=== PATIENT | male | born 1975 | race Caucasian/White ===

== ENCOUNTER 2019-09-15 13:42 | Emergency (ER) | payer OTHER ==
[~2019-09-15] VITALS: Ht 175.3 cm; Wt 79.9 kg
[~2019-09-15 13:42] MED LIST: HYDR-3240 PO
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
[2019-09-15 15:00] LABS: BASOPHILS # (AUTO) 0.01 x10^3/uL (0-0.1); BASOPHILS % (AUTO) 0 % (0-1); EOSINOPHILS # (AUTO) 0.11 x10^3/uL (0-0.4); EOSINOPHILS % (AUTO) 1 % (1-7); LYMPHOCYTES % (AUTO) 23 % (22-44); MD NO; MEAN CORPUSCULAR HEMOGLOBIN 29.8 pg (27.5-34.5); MEAN CORPUSCULAR HGB CONC 33.9 g/dL (33.2-36.2); MEAN CORPUSCULAR VOLUME 87.7 fL (81-97); MEAN PLATELET VOLUME 7.4 fL (7.4-10.4); MONOCYTES # (AUTO) 0.69 x10^3/uL (0.2-0.8); MONOCYTES % (AUTO) 9 % (2-9); NEUTROPHILS # (AUTO) 5.33 x10^3/uL (1.8-6.8); NEUTROPHILS % (AUTO) 67 % (42-75); PLATELET COUNT 249 x10^3/uL (130-400); RED BLOOD COUNT 5.24 x10^6/uL (4.38-5.82); RED CELL DISTRIBUTION WIDTH 13.5 % (9.4-14.8)
[2019-09-15 15:12] LABS: ALANINE AMINOTRANSFERASE 36 U/L (12-78); ALBUMIN 4.2 g/dL (3.4-5.0); ANION GAP 7 mmol/L (5-15); CALCIUM 9.2 mg/dL (8.5-10.1); CHLORIDE 107 mmol/L (98-107); CREATININE 0.94 mg/dL (0.7-1.3)
[2019-09-15 15:15] LABS: ALKALINE PHOSPHATASE 78 U/L (45-117); BILIRUBIN,TOTAL 1.5 mg/dL (0.2-1.0); TOTAL PROTEIN 7.8 g/dL (6.4-8.2)
--- NOTE | 2019-09-15 15:21 | NUR ---
PT RESTING IN BED, CALL LIGHT IN REACH.
[2019-09-15 15:31] LABS: INTERNATIONAL NORMALIZED RATIO 1.01 (0.93-1.1); PROTHROMBIN TIME 10.7 Seconds (9.6-11.5)
[2019-09-15 16:30] VITALS: BP 130/89
--- NOTE | 2019-09-15 16:34 | NUR ---
KALPANA SHAIKH BEDSIDE TO DISCUSS POC
--- NOTE | 2019-09-15 17:15 | NUR ---
PT TO IMAGING
--- NOTE | 2019-09-15 17:50 | NUR ---
KALPANA CRESPO AT BEDSIDE TO DICUSS POC
--- NOTE | 2019-09-15 18:01 | NUR ---
DISCHARGE INSTRUCTIONS REVIEWED
== END 2019-09-15 18:03 | disposition home or self-care (01) ==
LOC: ED 14:21
DX: F14.129 Cocaine abuse with intoxication, unspecified (principal); R20.2 Paresthesia of skin; J01.00 Acute maxillary sinusitis, unspecified
CPT/HCPCS: 36415; 70450; 71045; 80053; 85025; 85610; 93005; 99284